=== PATIENT | female | born 1960 | race African-American/Black ===

== ENCOUNTER 2017-11-09 08:46 | Emergency (ER) | payer SELFPAY ==
[~2017-11-09] VITALS: Ht 167.6 cm; Wt 71.7 kg
[~2017-11-09 08:46] MED LIST: ALEVE220 M2 PO; COD LIVER OIL1 EACH PO; GERITOL COMP1 TABLET PO
[2017-11-09 09:26] LABS: BASOPHIL (%) 0.5 % (0-1); EOSINOPHIL (%) 0.8 % (0-5); HEMATOCRIT 40.8 % (36.0-46.0); LYMPHOCYTE COUNT 2.2 K/uL (1.0-2.8); MCH 27.6 PG (29.0-34.0); MCHC 31.9 G/DL (30.0-36.0); MCV 86.6 FL (83-99); MONOCYTE (%) 8.1 % (3-12); MONOCYTE COUNT 0.3 K/uL (0-0.8); NEUTROPHIL (%) 33.6 % (45-76); NEUTROPHIL COUNT 1.3 K/uL (1.8-6.4); PLATELET COUNT 221 K/uL (156-360); RBC DIS.WIDTH-CV 13.2 % (11.8-14.6); RBC DIS.WIDTH-SD 41.8 % (39-53); RED BLOOD COUNT 4.71 M/uL (3.80-5.20); WHITE BLOOD COUNT 3.9 K/uL (4.1-10.2)
[2017-11-09 09:40] LABS: ALBUMIN 4.6 g/dL (3.2-4.8); CHLORIDE 107 mEq/L (99-109); POTASSIUM 4.1 mEq/L (3.7-5.4); SODIUM 141 mEq/L (136-147)
[2017-11-09 09:41] LABS: MAGNESIUM 2.6 mg/dL (1.3-2.7)
[2017-11-09 09:42] LABS: GLUCOSE 102 mg/dL (70-99)
[2017-11-09 09:43] LABS: TOTAL PROTEIN 7.4 g/dL (6.4-8.3)
[2017-11-09 09:44] LABS: TOTAL BILIRUBIN 0.3 mg/dL (0.0-1.0)
[2017-11-09 09:46] LABS: ALKALINE PHOSPHATASE 72 IU/L (3-129); CREATININE 0.8 mg/dL (0.6-1.3); GFR ESTIMATE (CALCULATED) > 59 mL/min/
[2017-11-09 09:47] LABS: UREA NITROGEN (BUN) 22 mg/dL (9-23)
[2017-11-09 09:48] LABS: AST (GOT) 15 IU/L (2-34)
[2017-11-09 09:49] LABS: ALT (GPT) 10 IU/L (3-49)
[2017-11-09 09:52] LABS: TROP-I INTERPRETATION NEGATIVE; TROPONIN-I 0.02 ng/mL (0.0-0.30)
[2017-11-09 10:08] LABS: APPEARANCE SL.HAZY ((CLEAR)); BILIRUBIN NEGATIVE; BLOOD NEGATIVE; COLOR YELLOW ((YELLOW)); GLUCOSE (STRIP) NEGATIVE; KETONES NEGATIVE; LEUKOCYTES TRACE; NITRITE NEGATIVE; PROTEIN (STRIP) NEGATIVE; SPECIFIC GRAVITY 1.017 (1.000-1.030); UROBILINOGEN 0.2 MG/DL (0.2-1.0)
[2017-11-09 10:13] LABS: BACTERIA RARE /HPF; EPITHELIAL CELLS 2+ /HPF; HYALINE CASTS 0-5 /LPF; MUCUS 3+ /LPF; RED BLOOD CELLS 0-5 /HPF (0-5); UCUL ADDED? NO; WHITE BLOOD CELLS 0-5 /HPF (0-5)
[2017-11-09 12:31] LABS: TROP-I INTERPRETATION NEGATIVE; TROPONIN-I < 0.01 ng/mL (0.0-0.30)
[2017-11-09] MEDS ORDERED: FLEXERIL10 MG PO (12:38)
[2017-11-09] MEDS ORDERED: MOTRIN600 MG PO (12:38)
[2017-11-09 12:54] VITALS: BP 135/69
== END 2017-11-09 13:04 | disposition home or self-care (01) ==
LOC: EME 08:46
PROVIDERS: Emergency Medicine
DX: R07.89 Other chest pain (principal); M54.32 Sciatica, left side; M53.3 Sacrococcygeal disorders, not elsewhere classified
CPT/HCPCS: 71046; 73502; 80053; 81003; 83735; 84484; 85025; 93005; 99281; 99284